=== PATIENT | female | born 1930 | race Asian ===

== ENCOUNTER → 2017-01-02 | Outpatient (CLI) | payer BC ==
[~2017-01-02] MED LIST: ANT25 PO; ASPI81TA28 PO; CALCTAB65; COEN1CAP7 PO; GLC500 PO; GLIP2.5T11 PO; LEVO100T7 PO; METF-384 PO; SYN100 PO; TELM40TA11 PO; calcium PO
[2017-01-02 13:46] VITALS: BP 170/72; PULSE 60; TEMP 36.5; O2SAT 98
--- NOTE | 2017-01-02 15:33 | Radiation Oncology Follow-Up ---
Radiation Oncology Follow-Up Date of Visit January 02, 2017. Reason For Visit This patient is returning for her regular scheduled follow-up visit. Radiation Completion Date finished 06-15-2011 Interim History She continues to be followed closely by . She stated that she developed mild itching and skin changes of the left nipple. This was evaluated and a biopsy was performed and was benign. She stated she now is having a similar finding of the right nipple. There is a brown discoloration which she feels has become darker in color. The area of concern has also become larger over this past year. She has and associated itching in this area. She is seeing tomorrow and plans to review this with her. She states that she will likely need of biopsy to have a full evaluation. She is up-to-date on mammography. She will be having recheck mammogram tomorrow in [place]. Patient in fact went to [facility] where she was seen by Dr. Rothman. She underwent ultrasounds on 01/04/2016 and mammograms. This showed no evidence of recurrent or suspicious disease. There was clinically a skin lesion that was ultimately thought to be fungal. She was treated with an antifungal medication and the lesion has since cleared. The patient continues to do well since that time. She has no complaints of left breast soreness or tenderness. She has no complaints of chest wall pain or discomfort. She has no complaints of skin changes itching or tenderness. The patient is scheduled for a follow-up with Dr. Rothman next month and will have her annual diagnostic mammograms at that time. Allergies Coded Allergies: Penicillins (Verified Allergy, Unknown, DR Darrin GEORGE GAVE OK TO GIVE ANCEF ON 08/08/06 ORDER, 07/19/13) Uncoded Allergies: polyester (Allergy, Intermediate, pruritis, 07/10/11) Home Medications Scheduled Aspirin (Aspirin Ec), 81 MG PO DAILY Calcium Carbonate-Vitamin D (Calcium 500 + D), 2 DAILY Coenzyme Q10 (Ubidecarenone) (Coq10), 1 CAP PO HS Glipizide (Glipizide Er), 1 TAB PO DAILY Levothyroxine (Synthroid *), 0.1 MG PO DAILY Metformin HCL (Glucophage *), 1,000 TAB PO DAILY Telmisartan (Micardis), 20 MG PO DAILY [calcium ], 1,000 MG PO HS Review of Systems Gastrointestinal: Symptoms: WNL Oral: Symptoms: No Problems Respiratory: Symptoms: WNL Urinary: Symptoms: WNL Comments: "occ leaking when waits too long to urinate " Skin: Symptoms: No Problems Breast: Right Upper Arm Measurement: 27.5 Right Mid Arm Measurement: 22.5 Right Wrist Measurement: 15.9 Left Upper Arm Measurement: 26.5 Left Mid Arm Measurement: 21.5 Left Wrist Measurement: 15.4 Arm Dominence: Right Patient Cosmetic Evaluation: Excellent Staff Cosmetic Evalaluation: Excellent Physical Exam Vital Signs Date Time Temp Pulse Resp B/P Pulse Ox O2 Delivery O2 Flow Rate FiO2 01/02/17 13:46 36.5 60 16 170/72 98 Pain: Side: Bilateral Patient Pain Scale: 0 - 10 Initial Pain Intensity: 0.0 Fatigue: None General Appearance: WD/WN, no apparent distress, + pertinent finding (he has a moderate kyphosis.) Eyes: normal inspection ENT: normal ENT inspection Neck: supple, no adenopathy, no carotid bruits Respiratory/Chest: chest non-tender, lungs clear, normal breath sounds Breast: Examination of the left breast reveals a well-healed incision in the upper central portion of the left breast. There is no induration or nodularity associated with this incision. There are no breast masses palpable in the left breast. There are no skin changes noted in the left breast. There is no tenderness of the left breast or chest wall. There is no palpable axillary adenopathy. Examination of the right breast reveals no skin changes, no breast masses and no right axillary adenopathy. Cardiovascular: regular rate, rhythm, + systolic murmur (4/6 heard best over the aortic area) Abdomen: non tender, soft, no organomegaly Extremities: normal range of motion, no pedal edema Neurologic/Psychiatric: alert, normal mood/affect, oriented x 3 Skin: normal color Lymphatic: no adenopathy, + axilla node tender (R) Additional Studies As noted above mammograms and ultrasounds from 01/04/2016 were unremarkable. She is scheduled for repeat annual diagnostic mammograms in January of this year at the time of her visit with Dr. Rothman. Total Time In Follow-Up I spent 15 minutes in examination and discussion with this patient, 10 minutes reviewing her chart and in preparation of this document. Copy To Juan Smalls, DO; Patience Rothman M.D.; Bo Cullen M.D.
== END | disposition home or self-care (01) ==
LOC: C.ONC 13:22
PROVIDERS: ATTEND Physician Assistant Medical
DX: Z08 Encounter for follow-up examination after completed treatment for malignant neoplasm (principal); Z92.3 Personal history of irradiation

== ENCOUNTER 2017-07-23 11:03 | Observation (INO) | payer BC ==
[~2017-07-23] VITALS: Ht 157.5 cm; Wt 68.6 kg
[~2017-07-23 11:03] MED LIST changes: -ANT25 PO; -LEVO100T7 PO; -METF-384 PO
[2017-07-23] MEDS ORDERED: MECLIZINE HCL 25 MG TAB PO STA (11:45)
[2017-07-23] MEDS ORDERED: SODIUM CHLORIDE 0.9% 500ML 500 ML IV STA (11:45)
[2017-07-23] MEDS ORDERED: ONDANSETRON INJ 2 MG/ML 2 ML VIAL IV STA (11:45)
--- NOTE | 2017-07-23 11:45 | EMERGENCY ROOM VISIT NOTE ---
History Report prepared by Ancelmo: Debbie Terrell Under the Supervision of: Dr. Darryl Dover M.D. First contact with patient: 11:32 Chief Complaint: VERTIGO Stated Complaint: VERTIGO, CANT OPEN EYES, DIZZY History of Present Illness The patient is an 87 year old female who presents to the Emergency Room with complaints of intermittent dizziness that began today. She states that her symptoms are worsened with standing and movement of her head. The patient additionally reports nausea with her symptoms. She reports relief of symptoms with lying down and staying still. The patient states that she has a history of vertigo two years ago. Source of History: patient Onset: today Position: other (global) Quality: other (dizziness) Timing: intermittent Modifying Factors (Worsening): other (standing and movement of her head) Modifying Factors (Relieving): other (lying down and staying still) Associated Symptoms: + nausea Review of Systems See HPI for pertinent positives & negatives. A total of 10 systems reviewed and were otherwise negative. 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 (2) Hypertensive emergency (3) Vertigo Family History Omitted secondary to age Social History Smoking Status: Never Smoker Alcohol Use: none Drug Use: none Marital Status: Housing Status: lives with family Occupation Status: retired Current/Historical Medications Scheduled Aspirin (Aspirin Ec), 81 MG PO DAILY Glipizide (Glipizide Er), 1 TAB PO DAILY Levothyroxine Sodium (Levothyroxine Sodium), 100 MCG PO DAILY Metformin Hcl (Glucophage), 1,000 MG PO DAILY Telmisartan (Micardis), 20 MG PO DAILY Allergies Coded Allergies: Penicillins (Verified Allergy, Unknown, DR Darrin GEORGE GAVE OK TO GIVE ANCEF ON 08/08/06 ORDER, 07/23/17) Uncoded Allergies: polyester (Allergy, Intermediate, pruritis, 07/10/11) Physical Exam Vital Signs Date Time Temp Pulse Resp B/P (MAP) Pulse Ox O2 Delivery O2 Flow Rate FiO2 07/23/17 15:00 103 162/74 07/23/17 14:27 55 20 178/75 100 07/23/17 14:12 56 07/23/17 14:06 57 18 213/76 100 07/23/17 12:18 50 18 224/85 100 07/23/17 12:15 100 Room Air 07/23/17 11:05 36.5 57 18 219/90 100 Room Air Physical Exam GENERAL: Patient is a healthy-appearing well-nourished female HEAD: Normocephalic atraumatic EYES: Ocular movements intact pupils equal and react to light OROPHARYNX mucous membranes are moist no exudates present no erythema or edema present NECK: Supple no nuchal rigidity CHEST: Good equal expansion LUNGS: Clear and equal to auscultation CARDIAC: 2/6 systolic murmur. ABDOMEN: Soft nontender no guarding BACK: No CVA tenderness EXTREMITIES: No pain upon palpation normal muscle strength in all groups no clubbing cyanosis or edema NEURO: Patient is following commands and answering questions appropriately. Alert and oriented x3 Cranial Nerves 2-12 grossly intact Medical Decision & Procedures Laboratory Results Test 07/23/17 12:34 07/23/17 12:42 Bedside Prothrombin Time INR 0.9 (0.9-1.1) Immature Granulocyte % (Auto) 0.2 % White Blood Count 5.17 K/uL (4.8-10.8) Red Blood Count 3.82 M/uL (4.2-5.4) Hemoglobin 11.5 g/dL (12.0-16.0) Hematocrit 34.5 % (37-47) Mean Corpuscular Volume 90.3 fL (80-100) Mean Corpuscular Hemoglobin 30.1 pg (25-34) Mean Corpuscular Hemoglobin Concent 33.3 g/dl (32-36) Platelet Count 227 K/uL (130-400) Mean Platelet Volume 9.2 fL (7.4-10.4) Neutrophils (%) (Auto) 79.6 % Lymphocytes (%) (Auto) 16.1 % Monocytes (%) (Auto) 2.7 % Eosinophils (%) (Auto) 0.8 % Basophils (%) (Auto) 0.6 % Neutrophils # (Auto) 4.12 K/uL (1.4-6.5) Lymphocytes # (Auto) 0.83 K/uL (1.2-3.4) Monocytes # (Auto) 0.14 K/uL (0.11-0.59) Eosinophils # (Auto) 0.04 K/uL (0-0.5) Basophils # (Auto) 0.03 K/uL (0-0.2) Immature Granulocyte # (Auto) 0.01 K/uL (0.00-0.02) Prothrombin Time 9.9 SECONDS (9.0-12.0) Prothromb Time International Ratio 0.9 (0.9-1.1) Activated Partial Thromboplast Time 24.7 SECONDS (21.0-31.0) Partial Thromboplastin Ratio 1.0 Labs reviewed by ED physician. Medications Administered Medications (Trade) Dose Ordered Sig/Kali Route Start Time Stop Time Status Last Admin Dose Admin Sodium Chloride 500 ml @ 999 mls/hr Q31M STAT IV 07/23/17 11:45 07/23/17 12:15 DC 07/23/17 11:45 999 MLS/HR Meclizine HCl (Antivert Tab) 25 mg NOW STAT PO 07/23/17 11:45 07/23/17 11:47 DC 07/23/17 11:57 25 MG Ondansetron HCl (Zofran Inj) 4 mg NOW STAT IV 07/23/17 11:45 07/23/17 11:47 DC 07/23/17 12:21 4 MG Hydralazine HCl (HydrALAZINE INJ) 5 mg NOW STAT IV. 07/23/17 13:51 07/23/17 13:52 DC 07/23/17 14:03 5 MG Telmisartan (Micardis Tab) 20 mg NOW STAT PO 07/23/17 14:02 07/23/17 14:03 DC 07/23/17 14:24 20 MG ECG Indication: other (dizziness) Rate (beats per minute): 50 Rhythm: sinus bradycardia Findings: no acute ischemic change, no ectopy, other (old lateral infarct) ED Course 1135: Past medical records reviewed. The patient was evaluated in room A3. A complete history and physical examination was performed. 1145: Ordered Zofran Inj 4 mg IV, Antivert Tab 25 mg PO, Sodium Chloride 500 ml @ 999 mls/hr IV. Medical Decision Differential diagnosis: Etiologies such as benign positional vertigo, dehydration, hypovolemia, anemia, tumor, infection, hypoglycemia, electrolyte abnormalities, cardiac sources, intracerebral event, toxicologic, neurologic, as well as others were entertained. This is an 87-year-old female who presents emergency department complaining of severe vertigo. The patient has had vertigo in the past. She was given meclizine with no improvement in her symptoms. Based on this I then tried hydralazine as well as the patient's home blood pressure medications. Repeat examination revealed improvement patient's symptoms. I did discuss the case with the hospitalist service who agreed to admit the patient. Patient was in agreement with treatment plan. Medication Reconcilliation Current Medication List: was personally reviewed by me Blood Pressure Screening Patient's blood pressure: Elevated blood pressure Blood pressure disposition: Referred to PCP Impression Primary Impression: Hypertensive urgency Scribe Attestation The scribe's documentation has been prepared under my direction and personally reviewed by me in its entirety. I confirm that the note above accurately reflects all work, treatment, procedures, and medical decision making performed by me. Departure Information Dispostion Still a Patient Referrals Bo Cullen M.D. (PCP) Patient Instructions [facility]
[2017-07-23] MEDS ORDERED: LEVO100T7 PO (12:31)
[2017-07-23] MEDS ORDERED: METF-384 PO (12:31)
[2017-07-23 12:55] LABS: BASO % 0.6 %; BASO ABS # 0.03 K/uL (0-0.2); COMPLETE YES; EOS % 0.8 %; HEMATOCRIT 34.5 % (37-47); IG% 0.2 %; LYMPH % 16.1 %; LYMPH ABS # 0.83 K/uL (1.2-3.4); MEAN CELL VOLUME 90.3 fL (80-100); MEAN CORPUSCULAR HEMOGLOBIN 30.1 pg (25-34); MEAN CORPUSCULAR HGB CONC 33.3 g/dl (32-36); MEAN PLATELET VOLUME 9.2 fL (7.4-10.4); MONO % 2.7 %; NEUT % 79.6 %; PLATELET COUNT 227 K/uL (130-400); RED BLOOD COUNT 3.82 M/uL (4.2-5.4); WHITE BLOOD COUNT 5.17 K/uL (4.8-10.8)
[2017-07-23 13:10] LABS: INR 0.9 (0.9-1.1); PROTHROMBIN TIME (PATIENT) 9.9 SECONDS (9.0-12.0)
[2017-07-23 13:13] LABS: BLOOD UREA NITROGEN 24 mg/dl (7-18); CALCIUM 9.3 mg/dl (8.5-10.1); CARBON DIOXIDE 25 mmol/L (21-32); CHLORIDE 107 mmol/L (98-107); CREATININE 0.98 mg/dl (0.60-1.20); GLUCOSE 148 mg/dl (70-99); MAGNESIUM 1.7 mg/dl (1.8-2.4); SODIUM 136 mmol/L (136-145)
[2017-07-23 13:18] LABS: CKMB/CK RATIO 2.2 (0-3.0)
--- NOTE | 2017-07-23 13:38 | DIAGNOSTIC IMAGING REPORT ---
CT OF THE HEAD WITHOUT CONTRAST CLINICAL HISTORY: Stroke. COMPARISON STUDY: Head CT April 19, 2015. CT DOSE: 537.48 mGy.cm TECHNIQUE: Helical axial images of the head were obtained without IV contrast. Automated exposure control was utilized for the study. A dose lowering technique was utilized adhering to the principles of ALARA. FINDINGS: No acute intracranial hemorrhage, midline shift or mass effect is present. Ventricular system is normal. Basilar cisterns are patent. There are no extra-axial collections. Snider-white differentiation is maintained. There are no findings to suggest acute dural sinus thrombosis or acute territorial infarct. Mild white matter hypodensity suggests small vessel disease. There are no significant calvarial abnormalities. Visualized portions of the mastoid air cells are clear. There is mild ethmoid sinus mucosal thickening. IMPRESSION: No acute intracranial findings. Electronically signed by: Deepak Whelan M.D. 07/23/2017 1:37 PM Dictated Date/Time: 07/23/2017 1:30 PM
[2017-07-23] MEDS ORDERED: HydrALAZINE HCL 20 MG/ML VIAL IV. STA (13:51)
[2017-07-23] MEDS ORDERED: TELMISARTAN 20 MG TAB PO STA (14:02)
[2017-07-23] MEDS ORDERED: GLUCOSE 10 TABS/TUBE PO PRN (15:00)
[2017-07-23] MEDS ORDERED: DEXTROSE 50% 50 ML SYR IV PRN (15:00)
[2017-07-23] MEDS ORDERED: GLUCAGON FOR INJ 1 MG VIAL SQ PRN (15:00)
[2017-07-23] MEDS ORDERED: ONDANSETRON INJ 2 MG/ML 2 ML VIAL IV PRN (15:00)
[2017-07-23] MEDS ORDERED: MAGNESIUM HYDROXIDE SUSP 30 ML UDC PO PRN (15:00)
[2017-07-23] MEDS ORDERED: ACETAMINOPHEN 325 MG TAB PO PRN (15:00)
[2017-07-23] MEDS ORDERED: ALUMINUM/MAGNESIUM/SIMETH (MAALOX MAX) 30 ML UDC PO PRN (15:00)
[2017-07-23] MEDS ORDERED: GLUCOSE 40% GEL 15 GM TUBE PO PRN (15:00)
[2017-07-23] MEDS ORDERED: HydrALAZINE HCL 20 MG/ML VIAL IV. PRN (15:00)
--- NOTE | 2017-07-23 15:36 | History and Physical ---
History & Physical Date & Time of Service: Jul 23, 2017 at 15:19 Chief Complaint: Vertigo, Cant Open Eyes, Dizzy Primary Care Physician: Bo Cullen M.D. History of Present Illness Source: patient, family (children at bedside), clinic records, hospital records This is an 87 y/o female with a history of HTN, HLD, hypothyroidism, left breast cancer, and DM II who presented to the ED on 07/23 with vertigo and nausea. The patient states that previously she would sometimes have some mild dizziness when changing positions, but this morning she felt like the whole room was spinning and could not keep her eyes open as it was so severe. She also had accompanied nausea but denies vomiting as she has not eaten since supper last night. She states that the dizziness is worse with movement or changes in position and is better if she lays down with her eyes closed and stays still. The patient states that the meclizine she received in the ED was helpful and she is no longer nauseous. She does complain of generalized weakness and fatigue. The patient admits that she has not taken her home blood pressure medication for about 2 weeks as she has not had the chance to refill her prescription. The patient denies fevers, chills, sweats, chest pain, palpitations, claudication, cough, wheezing, shortness of breath, vomiting, abdominal pain, dysuria, hematuria, urinary retention, paralysis, weakness, numbness and tingling. 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 Stage [id number] Estrogen receptor negative and progesterone receptor negative Status post completion of radiation therapy 06/15/2011 received 5760 cGy Status: Resolved HTN HLD Hypothyroidism DM II Family History Acute myocardial infarction Diabetes mellitus Lung disease Social History Smoking Status: Never Smoker Smokeless Tobacco Use: No Alcohol Use: none Drug Use: none Marital Status: Housing status: lives alone Occupational Status: employed Immunizations History of Influenza Vaccine: Yes Influenza Vaccine Date: Jun 19, 2013 History of Tetanus Vaccine?: Yes History of Pneumococcal: Yes Pneumococcal Date: Jul 19, 2010 History of Hepatitis B Vaccine: No Multi-Drug Resistant Organisms History of MDRO: No Allergies Coded Allergies: Penicillins (Verified Allergy, Unknown, DR Darrin GEORGE GAVE OK TO GIVE ANCEF ON 08/08/06 ORDER, 07/23/17) Uncoded Allergies: polyester (Allergy, Intermediate, pruritis, 07/10/11) Home Medications Scheduled Aspirin (Aspirin Ec), 81 MG PO DAILY Glipizide (Glipizide Er), 1 TAB PO DAILY Levothyroxine Sodium (Levothyroxine Sodium), 100 MCG PO DAILY Metformin Hcl (Glucophage), 1,000 MG PO DAILY Telmisartan (Micardis), 20 MG PO DAILY Review of Systems Constitutional: +Generalized weakness, fatigue. No fever, No chills, No sweats Eyes: No worsening of vision, No eye pain, No diplopia ENT: No hearing loss, No nasal symptoms, No trouble swallowing Respiratory: No cough, No wheezing, No shortness of breath Cardiovascular: No chest pain, No claudication, No palpitations Abdomen: +Nausea. No pain, No vomiting Musculoskeletal: No joint pain, No muscle pain, No swelling Genitourinary - Female: No dysuria, No urinary retention, No hematuria Neurologic: +Vertigo, positional. No paralysis, No weakness, No numbness/ tingling Integumentary: No rash, No itch, No color change Physical Exam Vital Signs Date Time Temp Pulse Resp B/P (MAP) Pulse Ox O2 Delivery O2 Flow Rate FiO2 07/23/17 14:27 55 20 178/75 100 07/23/17 14:12 56 07/23/17 14:06 57 18 213/76 100 07/23/17 12:18 50 18 224/85 100 07/23/17 12:15 100 Room Air 07/23/17 11:05 36.5 57 18 219/90 100 Room Air General appearance: Well-developed, well-nourished, no apparent distress Head: Normocephalic, atraumatic Eyes: +Reports worsening dizziness with EOM. Normal inspection, PERRL, EOMI ENT: Normal ENT inspection, hearing grossly normal, pharynx normal Neck: Supple, no JVD, trachea midline Respiratory/Chest: Lungs clear to auscultation, normal breath sounds, no respiratory distress Cardiovascular: +Systolic murmur. Regular rate & rhythm, no gallop, no murmur Abdomen/GI: Normal bowel sounds, non-tender, soft Extremities/Musculoskeletal: Normal inspection, no calf tenderness, no pedal edema Neurological/Psych: Alert, normal mood/affect, oriented x 3 Skin: Normal color, warm/dry, no rash Diagnostics Laboratory Results Results Past 24 Hours Test 07/23/17 12:34 07/23/17 12:42 Range/Units Bedside Prothrombin Time INR 0.9 0.9-1.1 White Blood Count 5.17 4.8-10.8 K/uL Red Blood Count 3.82 4.2-5.4 M/uL Hemoglobin 11.5 12.0-16.0 g/dL Hematocrit 34.5 37-47 % Mean Corpuscular Volume 90.3 80-100 fL Mean Corpuscular Hemoglobin 30.1 25-34 pg Mean Corpuscular Hemoglobin Concent 33.3 32-36 g/dl Platelet Count 227 130-400 K/uL Mean Platelet Volume 9.2 7.4-10.4 fL Neutrophils (%) (Auto) 79.6 % Lymphocytes (%) (Auto) 16.1 % Monocytes (%) (Auto) 2.7 % Eosinophils (%) (Auto) 0.8 % Basophils (%) (Auto) 0.6 % Neutrophils # (Auto) 4.12 1.4-6.5 K/uL Lymphocytes # (Auto) 0.83 1.2-3.4 K/uL Monocytes # (Auto) 0.14 0.11-0.59 K/uL Eosinophils # (Auto) 0.04 0-0.5 K/uL Basophils # (Auto) 0.03 0-0.2 K/uL RDW Standard Deviation 45.2 36.4-46.3 fL RDW Coefficient of Variation 13.8 11.5-14.5 % Immature Granulocyte % (Auto) 0.2 % Immature Granulocyte # (Auto) 0.01 0.00-0.02 K/uL Prothrombin Time 9.9 9.0-12.0 SECONDS Prothromb Time International Ratio 0.9 0.9-1.1 Activated Partial Thromboplast Time 24.7 21.0-31.0 SECONDS Partial Thromboplastin Ratio 1.0 Sodium Level 136 136-145 mmol/L Potassium Level 4.0 3.5-5.1 mmol/L Chloride Level 107 98-107 mmol/L Carbon Dioxide Level 25 21-32 mmol/L Anion Gap 4.0 3-11 mmol/L Blood Urea Nitrogen 24 7-18 mg/dl Creatinine 0.98 0.60-1.20 mg/dl Est Creatinine Clear Calc Drug Dose 37.6 ml/min Estimated GFR () 60.1 Estimated GFR (Non- 51.9 BUN/Creatinine Ratio 24.0 10-20 Random Glucose 148 70-99 mg/dl Calcium Level 9.3 8.5-10.1 mg/dl Magnesium Level 1.7 1.8-2.4 mg/dl Total Creatine Kinase 76 26-192 U/L Creatine Kinase MB 1.7 0.5-3.6 ng/ml Creatine Kinase MB Ratio 2.2 0-3.0 Troponin I < 0.015 0-0.045 ng/ml Diagnostic Radiology Reviewed the following studies and agree with interpretation as follows: CT OF THE HEAD WITHOUT CONTRAST CLINICAL HISTORY: Stroke. COMPARISON STUDY: Head CT April 19, 2015. CT DOSE: 537.48 mGy.cm TECHNIQUE: Helical axial images of the head were obtained without IV contrast. Automated exposure control was utilized for the study. A dose lowering technique was utilized adhering to the principles of ALARA. FINDINGS: No acute intracranial hemorrhage, midline shift or mass effect is present. Ventricular system is normal. Basilar cisterns are patent. There are no extra-axial collections. Snider-white differentiation is maintained. There are no findings to suggest acute dural sinus thrombosis or acute territorial infarct. Mild white matter hypodensity suggests small vessel disease. There are no significant calvarial abnormalities. Visualized portions of the mastoid air cells are clear. There is mild ethmoid sinus mucosal thickening. IMPRESSION: No acute intracranial findings. EKG Reviewed EKG and agree with interpretation as follows: 50 bpm, sinus bradycardia with sinus arrhythmia. Lateral T wave inversions, no previous EKG to compare Impression Assessment and Plan 87 y/o female with a history of HTN, HLD, hypothyroidism, left breast cancer, and DM II who presented to the ED on 07/23 with vertigo and nausea. Pt arrived hypertensive with BP up to 224/85 in ED. Pt has not taken home BP meds in 2 weeks. Given hydralazine 5 mg IV x 1 and home dose of telmisartan 20 mg PO x 1. BP improved to 178/75. Vital signs otherwise stable. Head CT does not show acute disease. EKG with lateral T wave inversions, unclear if this is acute or chronic. Denies chest pain. Cardiac enzymes negative. Labs grossly unremarkable. Hypertensive emergency -Admit to tele for observation -Continue home telmisartan 20 mg PO qd -Cover with hydralazine 10 mg IV q6h prn SBP >180 -EKG q am and prn chest pain -Trend cardiac enzymes q8h x 3 sets due to possible ischemia on EKG. First set negative -Will check MRI combo to confirm no CVA in setting of accelerated HTN and vertigo Vertigo, likely BPPV -Meclizine 25 mg PO TID scheduled for now, can step down to prn after first 24 hours or so -Check echo. Pt has systolic murmur on exam, could contribute HLD--no longer on statin due to myalgias Hypothyroidism -Continue Synthroid 100 mcg PO qd DM II--unknown last HgbA1c -Hold glipizide and metformin -Insulin sliding scale -Check BSGs q ac and qhs -Recheck HgbA1c in am H/o left breast cancer--stable DVT prophylaxis -Enoxaparin 40 mg SC q24h -HOMA Pandey Code Status -Level I, FULL RESUSCITATION STATUS Level of Care Telemetry Resuscitation Status FULL RESUSCITATION VTE Prophylaxis VTE Risk Assessment Done? Y/N: Yes Risk Level: Moderate Given or contraindicated: Enoxaparin (Lovenox)SQ, T.E.D. Stockings, SCD's
[2017-07-23] MEDS ORDERED: IV FLUIDS COMPLETED PRN (15:45)
[2017-07-23 17:48] VITALS: BP 207/65; PULSE 59; TEMP 36.8; Ht 157.5 cm; Wt 68.6 kg
[2017-07-23] MEDS ORDERED: MAGNESIUM SULFATE 1GM / D5W 1 GM in PREMIXED IN D5W 100 ML IV ONE (18:00)
[2017-07-23] MEDS ORDERED: ENOXAPARIN 40 MG/0.4 ML SYR SC SCH (18:00)
[2017-07-23 20:00] VITALS: O2SAT 96
[2017-07-23] MEDS: MECLIZINE HCL 25 MG TAB PO SCH (20:33)
[2017-07-23] MEDS: INSULIN ASPART 100 UNITS/ML 3 ML PEN SC SCH (20:37)
--- NOTE | 2017-07-23 21:02 | DIAGNOSTIC IMAGING REPORT ---
BRAIN COMBO CLINICAL HISTORY: Hypertensive emergency, vertigo COMPARISON STUDY: No previous studies for comparison. TECHNIQUE: Utilizing a 1.5 Terri magnet and dedicated coil, multiplanar, multiecho imaging of the brain was performed pre and postcontrast administration. IV administration of 8.5 mL of Gadavist contrast was uneventful. FINDINGS: Diffusion-weighted images are considered negative for an acute ischemic event. Age-related atrophy and chronic small vessel change. No significant postcontrast enhancement. Ventricular system is midline. Sella and parasellar regions are unremarkable. Internal artery canals are symmetric. IMPRESSION: Negative study for age. The above report was generated using voice recognition software. It may contain grammatical, syntax or spelling errors. Electronically signed by: Ulises Dubon M.D. 07/23/2017 9:01 PM Dictated Date/Time: 07/23/2017 9:00 PM
[2017-07-23 21:07] VITALS: BP 122/53; PULSE 65; TEMP 36.7; O2SAT 96
[2017-07-23 21:23] LABS: CKMB/CK RATIO 1.5 (0-3.0)
[2017-07-24] VITALS (7 sets, daily range): BP systolic 96–154; BP diastolic 44–64; PULSE 51–108; TEMP 36.6–36.9; O2SAT 93–98
[2017-07-24 05:00] LABS: HEMATOCRIT 34.5 % (37-47); MEAN CELL VOLUME 90.3 fL (80-100); MEAN CORPUSCULAR HEMOGLOBIN 29.6 pg (25-34); MEAN CORPUSCULAR HGB CONC 32.8 g/dl (32-36); MEAN PLATELET VOLUME 9.1 fL (7.4-10.4); PLATELET COUNT 229 K/uL (130-400); RED BLOOD COUNT 3.82 M/uL (4.2-5.4); WHITE BLOOD COUNT 5.68 K/uL (4.8-10.8)
[2017-07-24 05:19] LABS: BUN/CREATININE RATIO 18.6 (10-20); CALCIUM 8.7 mg/dl (8.5-10.1); CREATININE 1.27 mg/dl (0.60-1.20); MAGNESIUM 2.1 mg/dl (1.8-2.4); POTASSIUM 3.9 mmol/L (3.5-5.1)
[2017-07-24 05:30] LABS: CKMB/CK RATIO 2.3 (0-3.0)
[2017-07-24] MEDS: LEVOTHYROXINE 100 MCG TAB PO SCH (05:57)
[2017-07-24 06:56] LABS: ESTIMATED AVERAGE GLUCOSE 160 mg/dl; HA1C FLAG Normal (Normal)
[2017-07-24] MEDS: INSULIN ASPART 100 UNITS/ML 3 ML PEN SC SCH ×4 (07:00→21:00)
[2017-07-24] MEDS: TELMISARTAN 40 MG TAB PO SCH (08:59)
[2017-07-24] MEDS: ASPIRIN 81 MG ECTAB PO SCH (08:59)
[2017-07-24] MEDS: MECLIZINE HCL 25 MG TAB PO SCH ×3 (09:00→21:09)
--- NOTE | 2017-07-24 11:06 | Cardiology Consultation ---
Cardiology Consultation Date of Consultation: Jul 24, 2017. Pt evaluation today including: conversation w/ patient, conversation w/ family , physical exam, chart review, lab review, review of inpatient medication list History of Present Illness Resident Note: Please see Dr. De León's note for attending note Ms. Hall is an 87 year old lady with a past medical history of aortic stenosis, HTN, hyperlipidemia, DM2, hypothyroidism, left sided breast ca s/p lumpectomy & radiation who presented to [facility] with vertigo and nausea that was present upon wakening. She states she felt as though the room was spinning, and this was worse on movement and better if she lay still. This was also associated with weakness and fatigue. Of note, she states she has not taken her blood pressure medication (20mg Telmisartan daily) for 2 weeks as she had been busy at work and had not had time to refill the medication. She denies chest pain, SOB, headaches, visual disturbances, palpitations, syncopal episodes, orthopnea, PND, or swelling in her legs. She states she follows with Dr. Smalls for her aortic stenosis, and that her last ECHO was in May, at which time he discussed with her the possibility of needing surgery to replace the valve in the future. She reports she is quite active, working 5 days a week and swimming 3 times a week, and has had no anginal symptoms or difficulty breathing during her day to day activities. Upon arrival to the ED, her blood pressure was 224/85 and was reduced to 178/75 with 5mg of hydralazine and 20mg of telmisartan (her home dose). Her CT and MRI of her brain were negative. EKG showed sinus bradycardia with lateral T wave inversions that were not present on her previous EKGs. Her troponin was initially negative, but increased to 0.186. Today, she reports she feels less dizzy than yesterday. She remains with fatigue , but denies any chest pain, SOB, palpitations or lightheadedness. Her BP today is well controlled with her home dose of telmisartan, and has not required additional medication. Repeat EKG showed persistence of her lateral T wave changes. Past Medical/Surgical History PMH: HTN, hyperlipidemia, aortic stenosis, hypothyroidism, DM2, breast cancer s/ p lumpectomy and radiation Family History Acute myocardial infarction Diabetes mellitus Lung disease Father: from "heart problem" Mother: no cardiac history Social History Smoking Status: Never Smoker History of Alcohol Use: No Review of Systems Constitutional: No fever, No chills Respiratory: No cough, No sputum, No wheezing, No shortness of breath, No dyspnea on exertion Cardiac: No chest pain, No orthopnea, No PND, No edema, No claudication, No palpitations Abdomen: + nausea, No pain, No vomiting, No diarrhea Neurologic: + vertigo All Other Systems: Reviewed and Negative Allergies Coded Allergies: Penicillins (Verified Allergy, Unknown, DR Darrin GEORGE GAVE OK TO GIVE ANCEF ON 08/08/06 ORDER, 07/23/17) Uncoded Allergies: polyester (Allergy, Intermediate, pruritis, 07/10/11) Medications Current Inpatient Medications Medications (Trade) Dose Ordered Sig/Kali Route Start Time Stop Time Status Last Admin Dose Admin Enoxaparin Sodium (Lovenox Inj) 40 mg Q24H SC 07/23/17 18:00 08/22/17 17:59 07/23/17 20:34 40 MG Acetaminophen (Tylenol Tab) 650 mg Q4H PRN PO 07/23/17 15:00 08/22/17 14:59 Al Hydrox/Mg Hydrox/Simethicone (Maalox Max Susp) 15 ml Q4H PRN PO 07/23/17 15:00 08/22/17 14:59 Magnesium Hydroxide (Milk Of Magnesia Susp) 30 ml Q12H PRN PO 07/23/17 15:00 08/22/17 14:59 Ondansetron HCl (Zofran Inj) 4 mg Q6H PRN IV 07/23/17 15:00 08/22/17 14:59 Polyethylene (Miralax Powder Packet) 17 gm DAILY PRN PO 07/23/17 15:00 08/22/17 14:59 Insulin Aspart (novoLOG ASPART) SLIDING SCALE If C... ACHS SC 07/23/17 16:15 08/22/17 16:14 07/23/17 20:37 1 UNITS Glucose (Glucose 40% Gel) 15-30 GRAMS 15 GRAMS... UD PRN PO 07/23/17 15:00 08/22/17 14:59 Glucose (Glucose Chew Tab) 4-8 Tablets 4 Tabl... UD PRN PO 07/23/17 15:00 08/22/17 14:59 Dextrose (Dextrose 50% 50ML Syringe) 25-50ML OF 50% DW IV FOR... UD PRN IV 07/23/17 15:00 08/22/17 14:59 Glucagon (Glucagon Inj) 1 mg UD PRN SQ 07/23/17 15:00 08/22/17 14:59 Hydralazine HCl (HydrALAZINE INJ) 10 mg Q6H PRN IV. 07/23/17 15:00 08/22/17 14:59 Meclizine HCl (Antivert Tab) 25 mg TID PO 07/23/17 21:00 08/22/17 20:59 07/24/17 09:00 25 MG Aspirin (Ecotrin Tab) 81 mg DAILY PO 07/24/17 09:00 08/23/17 08:59 07/24/17 08:59 81 MG Levothyroxine Sodium (Synthroid Tab) 100 mcg DAILYBB PO 07/24/17 06:00 08/23/17 05:59 07/24/17 05:57 100 MCG Telmisartan (Micardis Tab) 20 mg DAILY PO 07/24/17 09:00 08/23/17 08:59 07/24/17 08:59 20 MG Miscellaneous (Iv Fluids Completed) 1 ea PRN PRN N/A 07/23/17 15:45 07/23/18 15:44 Physical Exam Vital Signs Past 12 Hours Date Time Temp Pulse Resp B/P (MAP) Pulse Ox O2 Delivery O2 Flow Rate FiO2 07/24/17 08:12 36.8 86 18 120/63 (82) 95 07/24/17 08:00 Room Air 07/24/17 04:00 Room Air 07/24/17 03:30 36.9 57 17 122/49 (73) 96 Room Air 07/24/17 00:00 Room Air 07/24/17 00:00 36.7 108 17 96/44 (61) 96 Room Air Head: normocephalic, atraumatic Lungs: Respiratory effort: no dyspnea, good air movement Auscultation: breath sounds normal, CTA except as noted, no wheezing, no rales/crackles, no rhonchi Cardiovascular: Apical Impulse: not displaced Heart Auscultation: RRR, pertinent finding (loud ejection systolic murmur heart throughout precordium, loudest over aortic region) Peripheral Pulses: Radial Pulse: normal on the left, normal on the right Dorsalis Pedis Pulse: normal on the left, normal on the right Extremities: no cyanosis, no edema Data Laboratory Results: Last 24 Hours Test 07/23/17 12:34 07/23/17 12:42 07/23/17 20:35 07/23/17 20:45 Bedside Prothrombin Time INR 0.9 White Blood Count 5.17 K/uL Red Blood Count 3.82 M/uL Hemoglobin 11.5 g/dL Hematocrit 34.5 % Mean Corpuscular Volume 90.3 fL Mean Corpuscular Hemoglobin 30.1 pg Mean Corpuscular Hemoglobin Concent 33.3 g/dl Platelet Count 227 K/uL Mean Platelet Volume 9.2 fL Neutrophils (%) (Auto) 79.6 % Lymphocytes (%) (Auto) 16.1 % Monocytes (%) (Auto) 2.7 % Eosinophils (%) (Auto) 0.8 % Basophils (%) (Auto) 0.6 % Neutrophils # (Auto) 4.12 K/uL Lymphocytes # (Auto) 0.83 K/uL Monocytes # (Auto) 0.14 K/uL Eosinophils # (Auto) 0.04 K/uL Basophils # (Auto) 0.03 K/uL RDW Standard Deviation 45.2 fL RDW Coefficient of Variation 13.8 % Immature Granulocyte % (Auto) 0.2 % Immature Granulocyte # (Auto) 0.01 K/uL Prothrombin Time 9.9 SECONDS Prothromb Time International Ratio 0.9 Activated Partial Thromboplast Time 24.7 SECONDS Partial Thromboplastin Ratio 1.0 Sodium Level 136 mmol/L Potassium Level 4.0 mmol/L Chloride Level 107 mmol/L Carbon Dioxide Level 25 mmol/L Anion Gap 4.0 mmol/L Blood Urea Nitrogen 24 mg/dl Creatinine 0.98 mg/dl Est Creatinine Clear Calc Drug Dose 37.6 ml/min Estimated GFR () 60.1 Estimated GFR (Non- 51.9 BUN/Creatinine Ratio 24.0 Random Glucose 148 mg/dl Calcium Level 9.3 mg/dl Magnesium Level 1.7 mg/dl Total Creatine Kinase 76 U/L 80 U/L Creatine Kinase MB 1.7 ng/ml 1.2 ng/ml Creatine Kinase MB Ratio 2.2 1.5 Troponin I < 0.015 ng/ml 0.020 ng/ml Bedside Glucose 186 mg/dl Test 07/24/17 04:52 07/24/17 06:46 White Blood Count 5.68 K/uL Red Blood Count 3.82 M/uL Hemoglobin 11.3 g/dL Hematocrit 34.5 % Mean Corpuscular Volume 90.3 fL Mean Corpuscular Hemoglobin 29.6 pg Mean Corpuscular Hemoglobin Concent 32.8 g/dl RDW Standard Deviation 46.4 fL RDW Coefficient of Variation 14.1 % Platelet Count 229 K/uL Mean Platelet Volume 9.1 fL Sodium Level 138 mmol/L Potassium Level 3.9 mmol/L Chloride Level 107 mmol/L Carbon Dioxide Level 26 mmol/L Anion Gap 5.0 mmol/L Blood Urea Nitrogen 24 mg/dl Creatinine 1.27 mg/dl Est Creatinine Clear Calc Drug Dose 29.0 ml/min Estimated GFR () 43.9 Estimated GFR (Non- 37.9 BUN/Creatinine Ratio 18.6 Random Glucose 121 mg/dl Estimated Average Glucose 160 mg/dl Hemoglobin A1c 7.2 % Calcium Level 8.7 mg/dl Magnesium Level 2.1 mg/dl Total Creatine Kinase 78 U/L Creatine Kinase MB 1.8 ng/ml Creatine Kinase MB Ratio 2.3 Troponin I 0.186 ng/ml Bedside Glucose 122 mg/dl Imaging: CT and MRI brain negative EKG: Sinus bradycardia with non-specific T wave changes Telemetry reviewed: Sinus rhythm Assessment & Plan Ms. Hall is an 87 year old lady with a past medical history of aortic stenosis, HTN, hyperlipidemia, DM2, hypothyroidism, left sided breast ca s/p lumpectomy & radiation who presented to [facility] with vertigo and nausea that was present upon wakening. Cardiology was consulted due to her troponin elevation and EKG changes. Troponin Elevation - likely elevated due to supply/demand mismatch from hypertension - will trend troponin until they have peaked and start to decrease - ECHO to rule out wall motion abnormalities - continue daily aspirin - may benefit from addition of statin in outpatient setting Hypertension - continue home dose of telmisartan - hydralazine 10mg prn for SBP >160, although well controlled with home dose today Aortic Stenosis - likely worsening in severity given clinical presentation, but unrelated to current symptoms - defer to Dr. Smalls for outpatient management Vertigo and Nausea - likely non-cardiac, defer to primary care for management Resident Tracking Resident Involvement: Resident Care Provided Care Provided: [facility]
--- NOTE | 2017-07-24 15:22 | CARDIOLOGY CONSULTATION ---
DATE OF CONSULTATION: 07/24/2017 TIME: 14:38 p.m. PRIMARY CREDIT DEPARTMENT MANAGER: Dr. Smalls. CONSULTING PHYSICIAN: Dr. Cheng. REASON FOR CONSULTATION: Hypertensive emergency and elevated troponins. HISTORY OF PRESENT ILLNESS: Ms. Benton is a very pleasant 87-year-old female with a history significant for aortic stenosis, hypertension, dyslipidemia, type 2 diabetes and left breast cancer status post lumpectomy and XRT. She follows with Dr. Smalls for her aortic stenosis. At 07:30 a.m. yesterday, she developed vertigo and nausea. She describes her vertigo as a spinning sensation. Her symptoms were worse with any type of movement. She also felt weak with fatigue. Her symptoms improved with some meclizine, but because of her symptoms, she did present to the Emergency Department. She was found to be significantly hypertensive with a blood pressure as high as 224/85 mmHg. She admitted that she has not taken her antihypertensive medication for approximately 2 weeks as she ran out of the medication and due to her busy schedule, did not have a chance to refill her prescription. She was given 5 mg of hydralazine IV as well as her oral Micardis 20 and her blood pressure has since improved. She denies chest pain, syncope, near syncope, shortness of breath, orthopnea, PND, edema, or palpitations. She denies bleeding. She currently feels much better. She did not eat or drink anything yesterday because of her symptoms, but she is now regaining her appetite and increasing her diet gradually. REVIEW OF SYSTEMS: As above and review of systems otherwise negative/unremarkable. PAST MEDICAL HISTORY: 1. Aortic stenosis, followed by Dr. Smalls. 2. Hypertension. 3. Dyslipidemia. 4. Type 2 diabetes. 5. Hypothyroidism. 6. Left breast cancer, status post lumpectomy and XRT. HOME MEDICATIONS: Include aspirin 81 mg daily, Micardis 20 mg daily, metformin 1000 mg daily, levothyroxine 100 mcg daily, and glipizide 1 tablet daily. INPATIENT MEDICATIONS: Include aspirin 81 mg daily and Lovenox 30 mg subQ daily. Hydralazine p.r.n.; however, she has not required any doses since her initial 5 mg yesterday. Meclizine 25 mg p.o. t.i.d., Micardis 20 mg daily, and levothyroxine 100 mcg daily. ALLERGIES: INCLUDE PENICILLINS AND POLYESTER. SOCIAL HISTORY: Denies tobacco, alcohol or drug abuse. She lives at home alone. She has 1 son and 1 grandson who lives next door. 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 She was accompanied in her hospital room. FAMILY HISTORY: Father had heart disease. PHYSICAL EXAMINATION: VITAL SIGNS: Temperature 36.9 degrees, heart rate 74 beats per minute, respiratory rate 18, blood pressure 128/64 mmHg, and oxygen saturation is 98% on room air. I's and O's negative 415 mL yesterday and weight 67.5 kg. GENERAL: No acute distress. She was alert and oriented. HEENT: Anicteric sclerae. NECK: No appreciable JVD. Bilateral carotid bruits versus radiation of cardiac murmur. Sluggish/delayed carotid upstrokes bilaterally. CARDIAC EXAMINATION: PMI was nondisplaced. There was no ventricular heave. Regular, normal S1. Soft S2. 2/6 late peaking systolic ejection murmur best heard at the right upper sternal border. No rubs or gallops. LUNGS: Clear to auscultation bilaterally without wheezes, rales or rhonchi. ABDOMEN: Soft, nontender, and nondistended. Normoactive bowel sounds. No bruits. EXTREMITIES: No cyanosis or pitting edema. 2+ radial pulses bilaterally. 2+ dorsalis pedis pulses bilaterally. No palpable cords. PSYCHIATRIC: Affect appears appropriate. ECG on 07/23/2017 at 12:07 p.m. personally reviewed. Sinus bradycardia at 50 beats per minute. LVH. Lateral T-wave abnormality. Repeat ECG on 07/24/2017 at 08:00 am personally reviewed, demonstrating sinus bradycardia at 53 beats per minute. LVH. Nonspecific T-wave abnormality in the lateral leads. Telemetry personally reviewed. Sinus rhythm. No arrhythmia. CT of the head report reviewed from 07/23/2017 with reported no acute intracranial findings. Brain MRI on 07/23/2017 reported as negative study for age per radiology. LABORATORY DATA: White blood cell count 5.68, hemoglobin 11.3, and platelets 229. Sodium 138, potassium 3.9, BUN 24, and creatinine 1.27. Initial troponin was undetectable followed by 0.02 followed by 0.186. INR 0.9. ASSESSMENT AND PLAN: 1. Elevated troponin: Her troponin is slightly elevated, but not diagnostic of myocardial infarction. Recommend serial troponin values until troponin peaked. She did not present with acute coronary syndrome. Her severe hypertension could have caused her elevation in troponin levels, especially given the fact that she does have aortic stenosis. Recommend optimizing blood pressure control. Continue aspirin 81 mg daily. Echocardiogram recommended. 2. Aortic stenosis: Echocardiogram had already been ordered to evaluate troponin levels. Aortic stenosis can be evaluated as well. This is followed by Dr. Smalls and based on exam, there is a concern that she does have significant aortic stenosis; however, does not appear to be symptomatic as her vertigo and nausea are not likely related to her aortic stenosis. This can continue to be followed and managed by Dr. Smalls in the outpatient setting. 3. Hypertension: Blood pressure much better while on her home dose of Micardis. Her severe hypertension is likely secondary to the fact that she was under some distress with her vertigo and also had not been taking her antihypertensive medication for approximately 2 weeks. Continue home regimen. 4. Disposition: Dr. Smalls was made aware that she is currently hospitalized and he plans on resuming her cardiology care tomorrow. Thank for allowing me to participate in the care of Ms. Benton. Sincerely,
--- NOTE | 2017-07-24 17:15 | ECHOCARDIOGRAM REPORT ---
*NOTICE TO RECEIVING [employer] This information is strictly Confidential and protected under [place] law. [place] law prohibits you from making any further disclosure of this information unless further disclosure is expressly permitted by the written consent of the person to whom it pertains or is authorized by law. A general authorization for the release of medical or other information is not sufficient for this purpose. Hospital accepts no responsibility if the information is made available to any other person, INCLUDING THE PATIENT. Interpretation Summary * Name: SUSANNA BELTRAN Study Date: 07/24/2017 07:48 AM BP: 122/49 mmHg * Patient Location: [id number].2E\S\E207\S\1 HR: 54 * : 1930 (M/d/yyyy) Gender: Female Height: 62 in * Age: 87 yrs Ethnicity: Weight: 158 lb * Ordering Physician: Hailey Jacobo * Referring Physician: Self, Referred * Performed By: Nicole Jerez RDCS * * Reason For Study: Vertigo, near syncope, systolic murmur * BSA: 1.7 m2 * -- Conclusions -- * 1. Normal left ventricular size with hyperdynamic systolic function. EF > 70%. No regional wall motion abnormalities. Severe concentric left ventricular hypertrophy. Type 1 diastolic dysfunction. * 2. The left atrium is mildly dilated. * 3. Moderate to severe aortic stenosis, with trace regurgitation. * 4. There is mild mitral regurgitation. * 5. Mildly elevated right ventricular systolic pressure; 40mmHg. * 6. Compared to prior study on 02/20/2011, aortic stenosis now appears moderate to severe. Procedure Details * A complete two-dimensional transthoracic echocardiogram was performed (2D, M-mode, Doppler and color flow Doppler). Left Ventricle * Normal left ventricular size with hyperdynamic systolic function. EF > 70%. No regional wall motion abnormalities. Severe concentric left ventricular hypertrophy. Type 1 diastolic dysfunction. Right Ventricle * The right ventricle is normal in size and function. * The right ventricular systolic function is normal as assessed by tricuspid annular plane systolic excursion (TAPSE) (normal >1.5 cm). Atria * The left atrium is mildly dilated. * Right atrial size is normal. * There is no evidence of atrial septal defect, but resolution does not allow assessment for a patent foramen ovale. Mitral Valve * The mitral valve is grossly normal. * There is mild mitral annular calcification. * There is no mitral valve stenosis. * There is mild mitral regurgitation. Tricuspid Valve * The tricuspid valve is not well visualized, but is grossly normal. * There is no tricuspid stenosis. * There is mild tricuspid regurgitation. Aortic Valve * The aortic valve is trileaflet. * Dimensionless index 0.33. * Moderate to severe aortic stenosis. * Trace aortic regurgitation. Pulmonic Valve * The pulmonary valve is inadequately visualized, but the Doppler data is adequate for interpretation. * There is no pulmonic valvular stenosis. * Trace pulmonic valvular regurgitation. Great Vessels * The aortic root is normal size. * Ascending aorta appears minimally dilated. Pericardium/Pleural * There is no pericardial effusion. Great Vessels * Normal IVC size and inspiratory collapse. MMode 2D Measurements and Calculations IVSd 1.5 cm LVIDd 3.6 cm LVIDs 2.1 cm LVPWd 1.6 cm IVS/LVPW 0.99 FS 41.5 % EDV(Teich) 54.2 ml ESV(Teich) 14.5 ml EF(Teich) 73.3 % EDV(cubed) 46.4 ml ESV(cubed) 9.3 ml EF(cubed) 79.9 % LV mass(C)d 210.6 grams LV mass(C)dI 121.8 grams/m\S\2 SV(Teich) 39.7 ml SI(Teich) 23.0 ml/m\S\2 SV(cubed) 37.1 ml SI(cubed) 21.4 ml/m\S\2 Ao root diam 2.9 cm Ao root area 6.5 cm\S\2 ACS 2.1 cm LA dimension 3.1 cm asc Aorta Diam 3.6 cm LA/Ao 1.1 LVOT diam 2.0 cm LVOT area 3.0 cm\S\2 Doppler Measurements and Calculations MV E max kalani 61.6 cm/sec MV A max kalani 107.2 cm/sec MV E/A 0.57 MV dec time 0.48 sec Ao V2 max 423.8 cm/sec Ao max PG 71.8 mmHg Ao max PG (full) 64.2 mmHg Ao V2 mean 286.0 cm/sec Ao mean PG 37.6 mmHg Ao mean PG (full) 32.8 mmHg Ao V2 VTI 85.6 cm STACIE(I,A) 1.2 cm\S\2 STACIE(I,D) 1.2 cm\S\2 STACIE(V,A) 0.99 cm\S\2 STACIE(V,D) 0.99 cm\S\2 LV V1 max PG 7.7 mmHg LV V1 mean PG 4.8 mmHg LV V1 max 138.6 cm/sec LV V1 mean 103.3 cm/sec LV V1 VTI 33.5 cm SV(Ao) 555.8 ml SI(Ao) 321.4 ml/m\S\2 SV(LVOT) 101.4 ml SI(LVOT) 58.7 ml/m\S\2 PA V2 max 156.1 cm/sec PA max PG 9.7 mmHg PA acc slope 1179.9 cm/sec\S\2 PA acc time 0.08 sec PI max kalani 142.5 cm/sec PI max PG 8.1 mmHg PI dec slope 129.9 cm/sec\S\2 PI P1/2t 321.4 msec TR max kalani 303.1 cm/sec RVSP(TR) 39.8 mmHg RAP systole 3.0 mmHg PA pr(Accel) 42.6 mmHg
--- NOTE | 2017-07-24 17:17 | Family Medicine Progress Note ---
Progress Note Date of Service Jul 24, 2017. 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 Constitutional: No fever, No chills Eyes: No worsening of vision Respiratory: No cough, No sputum, No wheezing, No shortness of breath, No dyspnea on exertion Cardiovascular: No chest pain Abdomen: No pain, No nausea, No vomiting Female : No dysuria, No urinary frequency Neurologic: + numbness/tingling (preexisting neuropathy), + vertigo Objective Physical Exam General Appearance: no apparent distress Eyes: PERRL, EOMI Respiratory/Chest: lungs clear, normal breath sounds, no respiratory distress, no accessory muscle use Cardiovascular: regular rate, rhythm, no edema, + systolic murmur Abdomen: normal bowel sounds, non tender, soft Neurologic/Psychiatric: carton stamper II-XII nml as tested, no motor/sensory deficits, alert, normal mood/affect, oriented x 3 Assessment and Plan 87 y/o female with a history of HTN, HLD, hypothyroidism, , left breast cancer, and DM II who presented to the ED on 07/23 with vertigo and nausea. Pt arrived hypertensive with BP up to 224/85 in ED. Pt has not taken home BP meds in 2 weeks. Given hydralazine 5 mg IV x 1 and home dose of telmisartan 20 mg PO x 1. BP improved to 178/75. Vital signs otherwise stable. B/P has normalized. Dizziness is better this morning Hypertensive emergency with elevated troponin - Blood pressures have improved with home med -Continue home telmisartan 20 mg PO qd -Cover with hydralazine 10 mg IV q6h prn SBP >180 -EKG with questionable changes in the lateral leads - Elevated troponin likely 2/2 to demand . peaked at 0.186, trending down - appreciate cardiology reccs - Brain MRI and Head CT are normal Echo Pending Vertigo, likely BPPV -Meclizine 25 mg PO TID -Check echo. Pt has systolic murmur on exam, could contribute - PT/OT HLD--no longer on statin due to myalgias Hypothyroidism -Continue Synthroid 100 mcg PO qd DM II--unknown last HgbA1c -Hold glipizide and metformin -Insulin sliding scale -Check BSGs q ac and qhs - A1c of 7.2 H/o left breast cancer--stable DVT prophylaxis -Enoxaparin 40 mg SC q24h -HOMA Pandey Code Status -Level I, FULL RESUSCITATION STATUS Dispo: Anticipate D/C tomorrow Resident Physician Supervision Note: I was present with the resident during the history and exam. I discussed the case with the resident and agree with the findings and plan as documented in the note. Documented By: Gary Cheng
[2017-07-24] MEDS: POLYETHYLENE (MIRALAX) 17 GM PACK PO PRN (18:39)
[2017-07-24] MEDS: ENOXAPARIN 30 MG/0.3 ML SYR SC SCH (21:10)
[2017-07-25] VITALS (7 sets, daily range): BP systolic 109–175; BP diastolic 42–64; PULSE 45–71; TEMP 36.5–36.8; O2SAT 93–97
[2017-07-25] MEDS: LEVOTHYROXINE 100 MCG TAB PO SCH (06:36)
[2017-07-25] MEDS: MECLIZINE HCL 25 MG TAB PO SCH ×3 (08:40→21:22)
[2017-07-25] MEDS: TELMISARTAN 40 MG TAB PO SCH (08:42)
[2017-07-25] MEDS: ASPIRIN 81 MG ECTAB PO SCH (08:43)
[2017-07-25] MEDS: INSULIN ASPART 100 UNITS/ML 3 ML PEN SC SCH ×4 (08:48→21:00)
[2017-07-25] MEDS ORDERED: ANT25 PO (12:45)
--- NOTE | 2017-07-25 12:52 | Discharge Instructions ---
Discharge Instructions Date of Service Jul 25, 2017. Admission Reason for Admission: Hypertensive Emergency; Vertigo Discharge Discharge Diagnosis / Problem: Hypertensive emergency, BPPV Discharge Goals Goal(s): Decrease discomfort, Learn about illness, Therapeutic intervention, Prevent Disease Progression Activity Recommendations Activity Limitations: as noted below Lifting Limitations: gradually increase as tolerated Exercise/Sports Limitations: gradually increase as tolerated May Resume Sexual Activity: when tolerated Shower/Bathe: no limitations (unless dizziness persists) Mrs. Benton, You were admitted due to extremely high blood pressures. This improved with resuming your home meds. Please do not miss home doses of your blood pressure medicines. This increases your risk of stroke, heart attacks etc. You also had some dizziness which we believe is because of BPPV (positional vertigo). We recommend that you continue the meclizine as needed for another week. We also recommend physical therapy for vestibular therapy. [facility] in [place] can provide this therapy for you. Please follow up with your PCP within 3-5 days. If you have further worsening of symptoms, please call your PCP or go to the ER. Thank you. . Instructions / Follow-Up Instructions / Follow-Up Please follow up with Liya LUIS SaturdayAug 05 at 4pm. This appointment has been made for you. Current Hospital Diet Patient's current hospital diet: AHA Diet (Heart Healthy), Diabetes Type 2 Diet Discharge Diet Recommended Diet: AHA Diet (Heart Healthy) Pending Studies Studies pending at discharge: no Laboratory Results Hemoglobin A1c Test 07/24/17 04:52 Range/Units Estimated Average Glucose 160 mg/dl Hemoglobin A1c 7.2 H 4.5-5.6 % Medical Emergencies . Who to Call and When: Medical Emergencies: If at any time you feel your situation is an emergency, please call 911 immediately. . Non-Emergent Contact Non-Emergency issues call your: Primary Care Provider Call Non-Emergent contact if: you have a fever, you have any medication questions . . "Provider Documentation" section prepared by Gisell Peace. . VTE Core Measure Inpt VTE Proph given/why not?: Enoxaparin (Lovenox)SQ, T.E.D. Stockings, SCD's
--- NOTE | 2017-07-25 18:17 | Family Medicine Progress Note ---
Progress Note Date of Service Jul 25, 2017. Subjective Reports that the dizziness is better but still has some trouble while going to the bathroom Also reports being fatigued No other concerns Constitutional: No fever, No chills Eyes: + worsening of vision Respiratory: No cough, No sputum, No shortness of breath, No dyspnea on exertion Cardiovascular: No chest pain Abdomen: No pain, No nausea Female : No dysuria, No urinary frequency Neurologic: + vertigo, + balance problems, No memory loss, No paralysis, No numbness/tingling Objective Physical Exam General Appearance: no apparent distress Eyes: PERRL, EOMI Neck: no adenopathy, no JVD Respiratory/Chest: lungs clear, normal breath sounds, no respiratory distress, no accessory muscle use Cardiovascular: regular rate, rhythm, no edema, + systolic murmur Abdomen: normal bowel sounds, non tender, soft Extremities: no pedal edema, no calf tenderness Neurologic/Psychiatric: 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 Pt arrived hypertensive with BP up to 224/85 in ED. Pt has not taken home BP meds in 2 weeks. Given hydralazine 5 mg IV x 1 and home dose of telmisartan 20 mg PO x 1. BP improved to 178/75. Vital signs otherwise stable. B/P improved. Dizziness is improving but patient still symptomatic with ADLs Hypertensive emergency with elevated troponin - Blood pressures have improved with home med -Continue home telmisartan 20 mg PO qd -Cover with hydralazine 10 mg IV q6h prn SBP >180 -EKG with questionable changes in the lateral leads - Elevated troponin likely 2/2 to demand . peaked at 0.186, trended down - Brain MRI and Head CT are normal Echo : Moderate to severe Aortic stenosis, EF >70 %, Severe LVH, type 1 diastolic dysfunction Cardiology aware Vertigo, likely BPPV - Meclizine 25 mg PO TID - PT/OT - PT recommends continued therapy. May need inpatient rehab if there is no improvement - severe aortic stenosis but likely not contributing to her current vertigo HLD--no longer on statin due to myalgias Hypothyroidism -Continue Synthroid 100 mcg PO qd DM II--unknown last HgbA1c -Hold glipizide and metformin -Insulin sliding scale -Check BSGs q ac and qhs - A1c of 7.2 H/o left breast cancer--stable DVT prophylaxis -Enoxaparin 40 mg SC q24h -HOMA Pandey Code Status -Level I, FULL RESUSCITATION STATUS Dispo: Anticipate D/C tomorrow Resident Physician Supervision Note: I was present with the resident physician during the history and exam. I discussed the case with the resident and agree with the findings and plan as documented in the note. Documented By: Gary Cheng
[2017-07-25] MEDS: ENOXAPARIN 30 MG/0.3 ML SYR SC SCH (21:21)
[2017-07-26 04:31] VITALS: BP 121/41; PULSE 49; TEMP 36.5; O2SAT 95
[2017-07-26] MEDS: LEVOTHYROXINE 100 MCG TAB PO SCH (05:35)
[2017-07-26] MEDS: MECLIZINE HCL 25 MG TAB PO SCH ×2 (08:27→14:00)
[2017-07-26] MEDS: ASPIRIN 81 MG ECTAB PO SCH (08:27)
[2017-07-26] MEDS: TELMISARTAN 40 MG TAB PO SCH (08:27)
[2017-07-26] MEDS: INSULIN ASPART 100 UNITS/ML 3 ML PEN SC SCH ×3 (08:31→16:15)
[2017-07-26 08:32] VITALS: BP 128/49; PULSE 50; TEMP 36.6; O2SAT 94
[2017-07-26 11:34] VITALS: PULSE 62; TEMP 36.3; O2SAT 98
[2017-07-26] MEDS: POLYETHYLENE (MIRALAX) 17 GM PACK PO PRN (12:22)
[2017-07-26 15:23] VITALS: BP 128/49; PULSE 62; TEMP 36.3; O2SAT 98
[2017-07-26 15:25] VITALS: BP 105/58; PULSE 64; TEMP 36.6; O2SAT 96
--- NOTE | 2017-07-26 15:32 | Discharge Summary ---
Discharge Summary Date of Service Jul 26, 2017. Discharge Summary Admission Date: Jul 23, 2017 at 15:13 Discharge Date: Jul 25, 2017 Discharge Disposition: Home Principal Diagnosis: Benign Positional Paroxysmal Vertigo & Hypertensive Urgency Immunizations: Have You Had Influenza Vaccine: Yes Influenza Vaccine Date: Jun 19, 2013 History of Tetanus Vaccine?: Yes History of Pneumococcal: Yes Pneumococcal Date: Jul 19, 2010 History of Hepatitis B Vaccine: No Procedures: BRAIN COMBO CLINICAL HISTORY: Hypertensive emergency, vertigo COMPARISON STUDY: No previous studies for comparison. TECHNIQUE: Utilizing a 1.5 Terri magnet and dedicated coil, multiplanar, multiecho imaging of the brain was performed pre and postcontrast administration. IV administration of 8.5 mL of Gadavist contrast was uneventful. FINDINGS: Diffusion-weighted images are considered negative for an acute ischemic event. Age-related atrophy and chronic small vessel change. No significant postcontrast enhancement. Ventricular system is midline. Sella and parasellar regions are unremarkable. Internal artery canals are symmetric. IMPRESSION: Negative study for age. ECHOCARDIOGRAM * -- Conclusions -- * 1. Normal left ventricular size with hyperdynamic systolic function. EF > 70% . No regional wall motion abnormalities. Severe concentric left ventricular hypertrophy. Type 1 diastolic dysfunction. * 2. The left atrium is mildly dilated. * 3. Moderate to severe aortic stenosis, with trace regurgitation. * 4. There is mild mitral regurgitation. * 5. Mildly elevated right ventricular systolic pressure; 40mmHg. * 6. Compared to prior study on 02/20/2011, aortic stenosis now appears moderate to severe. Medication Reconciliation New Medications: Meclizine HCl (Meclizine HCl) 25 Mg Tab 25 MG PO TID PRN for Dizziness or Vertigo for 7 Days, #21 TAB Continued Medications: Aspirin (Aspirin Ec) 81 Mg Tab 81 MG PO DAILY Glipizide (Glipizide Er) 2.5 Mg Tab 1 TAB PO DAILY for 30 Days, #30 TAB 5 Refills Levothyroxine Sodium (Levothyroxine Sodium) 100 Mcg Tab 100 MCG PO DAILY for 90 Days, #90 TAB 3 Refills Metformin Hcl (Glucophage) 1,000 Mg Tab 1000 MG PO DAILY, TAB Telmisartan (Micardis) 40 Mg Tab 20 MG PO DAILY, TAB Discharge Exam Subjective Patient reports that she is feeling better and has no complaints. Constitutional: No fever, No chills Eyes: + worsening of vision Respiratory: No cough, No sputum, No shortness of breath, No dyspnea on exertion Cardiovascular: No chest pain Abdomen: No pain, No nausea Female : No dysuria, No urinary frequency Neurologic: + vertigo, + balance problems, No memory loss, No paralysis, No numbness/tingling Objective General Appearance: no apparent distress Eyes: PERRL, EOMI Neck: no adenopathy, no JVD Respiratory/Chest: lungs clear, normal breath sounds, no respiratory distress, no accessory muscle use Cardiovascular: regular rate, rhythm, no edema, + systolic murmur Abdomen: normal bowel sounds, non tender, soft Extremities: no pedal edema, no calf tenderness Neurologic/Psychiatric: 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 Pt arrived hypertensive with BP up to 224/85 in ED. Pt has not taken home BP meds ( Telmisartan) in 2 weeks. Given hydralazine 5 mg IV x 1 and was continued on her home dose of Telmisartan. BP improved to 120/58. Vital signs otherwise stable. Dizziness took longer to improve, there was moderate improvement with [place]. Patient was started on Meclizine 25mg TID. On hospital Day #3 PT recommended that patient was safe for home discharge. Patient states she has a cane at home for unsteady gait. We recommended using her cane so that she can maintain better balance. We also recommended that her family check up on her frequently throughout the weekend. Patient was also advised to keep taking her BP medications and not miss a dose. Troponins peaked at 0.186, likely from demand ischemia. No telemetry events. Resident Physician Supervision Note: I was present with the resident physician during the history and exam. I discussed the case with the resident and agree with the findings and plan as documented in the note. Documented By: Gary Cheng Total Time Spent: Greater than 30 minutes (55min) This includes examination of the patient, discharge planning, medication reconciliation, and communication with other providers. Discharge Instructions Please refer to the electronic Patient Visit Report (Discharge Instructions) for additional information. Follow-Up Follow up with Primary Care Provider in one week - patient stated that she would be able to do this on her own. Dr. Barbosa is currently on leave of Absence. We recommended Dr. Humphreys, patient verbalized that she would do this. Additional Copies To Bo Cullen M.D. Resident Involvement: Resident Care Provided Care Provided: Adult [facility]
== END 2017-07-26 17:51 | disposition home or self-care (01) ==
LOC: C.EDB 11:04 → C.2E 15:13 → ENRESERV 15:44
PROVIDERS: ADMIT Hospitalist; ATTEND Family Medicine
DX: H81.10 Benign paroxysmal vertigo, unspecified ear (principal); I10 Essential (primary) hypertension; E78.5 Hyperlipidemia, unspecified; E03.9 Hypothyroidism, unspecified; Z85.3 Personal history of malignant neoplasm of breast; E11.9 Type 2 diabetes mellitus without complications; Z88.0 Allergy status to penicillin; Z79.82 Long term (current) use of aspirin; Z79.899 Other long term (current) drug therapy; Z82.49 Family history of ischemic heart disease and other diseases of the circulatory system; Z83.3 Family history of diabetes mellitus

== ENCOUNTER → 2017-08-01 | Outpatient (CLI) | payer BC ==
[2017-01-02 13:46] VITALS: BP 170/72; PULSE 60
[~2017-08-01] MED LIST changes: +ANT25 PO; -CALCTAB65; -COEN1CAP7 PO; -GLC500 PO; +LEVO100T7 PO; +METF-384 PO; -SYN100 PO; -calcium PO
[2017-08-01 13:25] VITALS: BP 131/66; PULSE 54; TEMP 36.5; O2SAT 97
--- NOTE | 2017-08-01 16:40 | Radiation Oncology Follow-Up ---
Radiation Oncology Follow-Up Date of Visit Aug 01, 2017. 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 Stage [id number] Estrogen receptor negative and progesterone receptor negative Status post completion of radiation therapy 06/15/2011 received 5760 cGy Last Edited By: Leana Siddiqi on January 05, 2015 16:19 Interim History She's been doing well over this past year. She has noted no changes to her breast. She's noticed no masses or tenderness no change of the axilla. She's had no swelling of her arms. She is up-to-date on mammography. She saw Dr. Rothman in January and had a mammogram. Mammogram showed that there is no mammographic evidence of malignancy. One year follow-up was recommended. This was given a BI-RADS Category 2. Allergies Coded Allergies: Penicillins (Verified Allergy, Unknown, DR Darrin GEORGE GAVE OK TO GIVE ANCEF ON 08/08/06 ORDER, 07/23/17) Uncoded Allergies: polyester (Allergy, Intermediate, pruritis, 07/10/11) Home Medications Scheduled Aspirin (Aspirin Ec), 81 MG PO DAILY Glipizide (Glipizide Er), 1 TAB PO DAILY Levothyroxine Sodium (Levothyroxine Sodium), 100 MCG PO DAILY Metformin Hcl (Glucophage), 1,000 MG PO DAILY Telmisartan (Micardis), 20 MG PO DAILY Scheduled PRN Meclizine HCl (Meclizine HCl), 25 MG PO TID PRN for Dizziness or Vertigo Review of Systems Gastrointestinal: Symptoms: WNL, Nausea GI Comments: when gets dizzy gets nauseous Oral: Symptoms: No Problems Respiratory: Symptoms: WNL Urinary: Symptoms: WNL, Frequency Comments: "occ leaking when waits too long to urinate " Skin: Symptoms: No Problems Breast: Right Upper Arm Measurement: 25.8 Right Mid Arm Measurement: 21.2 Right Wrist Measurement: 15.2 Left Upper Arm Measurement: 25.7 Left Mid Arm Measurement: 20.5 Left Wrist Measurement: 15.2 Arm Dominence: Right Patient Cosmetic Evaluation: Excellent Staff Cosmetic Evalaluation: Excellent Physical Exam Vital Signs Date Time Temp Pulse Resp B/P (MAP) Pulse Ox O2 Delivery O2 Flow Rate FiO2 08/01/17 13:25 36.5 54 16 131/66 97 Fatigue: None General Appearance: no apparent distress Eyes: normal inspection, EOMI ENT: normal ENT inspection, hearing grossly normal Neck: no adenopathy, thyroid normal Respiratory/Chest: lungs clear, no respiratory distress, no accessory muscle use Breast: Breast examination reveals well-healed incisions of the left breast. This is an upper central portion of the breast. There are no masses or tenderness and no axillary adenopathy. There are mild fibrous changes. There are no skin retractions or nipple changes. Using the [place] score cosmesis she has a good outcome. Right breast showed no masses or tenderness no axillary adenopathy. Cardiovascular: regular rate, rhythm, no gallop, + systolic murmur (2/6 systolic murmur heard best at the aortic area) Abdomen: non tender, soft, no organomegaly Extremities: no pedal edema Neurologic/Psychiatric: no motor/sensory deficits, alert, normal mood/affect Skin: warm/dry Lymphatic: no adenopathy Pain Management Patient Reports Pain: No Side: Bilateral Patient Preferred Pain Scale: 0 - 10 Initial Pain Intensity: 0.0 Pain Management Plan She denies pain therefore requires no pain management. Laboratory Laboratory Results: not applicable Pathology Pathology Results: not applicable Imaging Imaging Studies: were reviewed Imaging Comments Review is in the interim history. Assessment & Plan Plan: Continue annual mammography. She'll have this at [place] with her recheck visit with the breast surgeon. Continue follow-up with her primary care physician and receiving specialist. A follow-up visit with our office was not given. She'll now follow on an annual basis with a breast surgeon. She may call if she has any questions or concerns with be happy to see her. Total Time In Follow-Up I spent 20 minutes speaking to the patient and performing his examination. I spent 15 minutes reviewing information in completing this note. Copy To Patience Rothman M.D.; Bo Cullen M.D.
== END | disposition home or self-care (01) ==
LOC: C.ONC 12:52
PROVIDERS: ATTEND Physician Assistant Medical
DX: Z08 Encounter for follow-up examination after completed treatment for malignant neoplasm (principal); Z92.3 Personal history of irradiation; Z85.3 Personal history of malignant neoplasm of breast

== ENCOUNTER → 2018-04-04 | Outpatient (CLI) | payer BC ==
[~2018-04-04] MED LIST changes: +GADAVIST IV PRN
--- NOTE | 2018-04-04 18:08 | DIAGNOSTIC IMAGING REPORT ---
CERVICAL SPINE 2 OR 3 VIEWS CLINICAL HISTORY: Neck pain. COMPARISON STUDY: Cervical spine radiographs November 06, 2010. FINDINGS: Alignment of the cervical spine is anatomic. Vertebral body heights are maintained. There is mild multilevel disc space narrowing and osteophytosis of the cervical spine. Mild multilevel facet arthrosis is present. Prevertebral soft tissues are unremarkable. No fracture is identified. IMPRESSION: 1. No cervical spine fracture identified. 2. Mild multilevel degenerative disc disease and facet arthrosis of the cervical spine. Electronically signed by: Deepak Whelan M.D. 04/04/2018 6:06 PM Dictated Date/Time: 04/04/2018 6:05 PM
--- NOTE | 2018-04-04 20:16 | DIAGNOSTIC IMAGING REPORT ---
MRI OF THE BRAIN WITHOUT AND WITH IV CONTRAST CLINICAL HISTORY: New onset severe headache. COMPARISON STUDY: Head CT and MRI of the brain July 23, 2017. TECHNIQUE: Utilizing a 1.5 Terri magnet and dedicated coil, multiplanar, multiecho imaging of the brain was performed pre and postcontrast administration. IV administration of 6.5 mL of Gadavist contrast was uneventful. Thin cut T1 post contrast imaging was performed. Multiplanar reconstructions were obtained. FINDINGS: There are no foci of restricted diffusion to suggest acute infarct. No acute intracranial hemorrhage, midline shift or mass effect is present. Ventricular system is stable. Basilar cisterns are patent. There are no extra-axial collections. Flow-voids for the major intracranial vessels are present. There is no intracranial mass or pathologic enhancement. White matter T2 hyperintense foci suggest mild small vessel disease. Calvarial signal is maintained. Orbits are unremarkable. There is mild ethmoid sinus mucosal thickening. There is no mastoid fluid. IMPRESSION: 1. No acute intracranial findings. 2. Moderate atrophy and mild small vessel disease. No change since MRI of July 23, 2017. 3. No intracranial mass or pathologic enhancement. Electronically signed by: Deepak Whelan M.D. 04/04/2018 8:15 PM Dictated Date/Time: 04/04/2018 8:11 PM
== END | disposition home or self-care (01) ==
LOC: C.MRI 17:24
PROVIDERS: ATTEND Family Medicine
DX: M50.30 Other cervical disc degeneration, unspecified cervical region (principal); R51 Headache